=== PATIENT | female | born 1980 | race Caucasian/White ===

== ENCOUNTER 2016-08-27 13:45 | Emergency (ER) | payer SELFPAY ==
[~2016-08-27] VITALS: Ht 165.1 cm; Wt 65.0 kg
[~2016-08-27 13:45] MED LIST: CLIN1CAP6 PO; LACTCHW3 CHEW
[2016-08-27 13:57] VITALS: BP 118/63; PULSE 106; RESP 16; TEMP 98.8; O2SAT 97
[2016-08-27] MEDS ORDERED: SODIUM CHLORIDE 0.9% FLUSH 10 ML FLUSH IVF PRN (14:15)
[2016-08-27] MEDS ORDERED: SODIUM CHLOR 0.9% 1000 ML INJ 1,000 ML IV ONE (14:15)
[2016-08-27] MEDS ORDERED: RISP.25 PO (14:16)
[2016-08-27] MEDS ORDERED: LORazepam 1 MG TAB PO ONE (14:45)
--- NOTE | 2016-08-27 14:46 | PD ---
HPI Chief Complaint: Psychiatric Symptoms Time Seen by Provider: 14:00 Travel History International Travel<30 days: No Contact w/Intl Traveler<30days: No Traveled to known affect area: No History of Present Illness HPI Patient is a 36-year-old female brought into the emergency Department under White act for suicidal ideations. According to the White act report patient has been making physical threats, her anger has been escalating and she states that she wants to hang herself. Patient reported to me that she has had 2 previous suicide attempts and she currently has thoughts of hanging herself. She also reports feeling very irritable, angry, tired. 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 She believes that she is autistic and that's the root of her problems. She endorses tobacco use and marijuana use, she reports a previous history of cocaine. She reports pain in her right foot pad from a splinter. PFSH Past Medical History Arthritis: Yes Anxiety: Yes Depression: Yes Cancer: No Cardiovascular Problems: No Diabetes: No Diminished Hearing: No Endocrine: No Gastrointestinal Disorders: Yes (gallstones) Hepatitis: Yes (HEP C) Immune Disorder: No Implanted Vascular Access Dvce: No Musculoskeletal: Yes Neurologic: No Psychiatric: Yes (PTSD, schizoaffective disorder, bipolar) Reproductive: No Respiratory: No Immunizations Current: Yes Thyroid Disease: No ?: Not : 2 Para: 2 Ovarian Cysts: Yes (RIGHT SIDE) Tubal Ligation: Yes Past Surgical History Abdominal Surgery: Yes (TUMMY TUCK) AICD: No Section: Yes (X2) Gynecologic Surgery: Yes (C SEC 2004 AND 2007) Joint Replacement: No Pacemaker: No Tonsillectomy: Yes Other Surgery: Yes (BREAST AUGMENT.X2/TUMMY TUCK / MRSA RT ARMPIT) Social History Alcohol Use: Yes (RARELY) Tobacco Use: Yes (1 PPD) Substance Use: No (history of polysubstance abuse, none current) Allergies-Medications (Allergen,Severity, Reaction): Coded Allergies: *MDRO Multi-Drug Resistant Organism (Verified Adverse Reaction, Unknown, 04/03/16) MRSA PCR screen POSITIVE 04/02/16 Reported Meds & Prescriptions Reported Meds & Active Scripts Active Reported Risperdal (Risperidone) 0.25 Mg Tab 0.25 Mg PO DAILY Review of Systems Except as stated in HPI: all other systems reviewed are Neg Musculoskeletal: Positive: Pain (right foot pad from a splinter) Physical Exam Narrative GENERAL: Well-developed, well-nourished, alert female. Resting comfortably in no acute distress. SKIN: Focused skin assessment warm/dry. HEAD: Atraumatic. Normocephalic. EYES: Pupils equal and round. No scleral icterus. No injection or drainage. ENT: No nasal bleeding or discharge. Mucous membranes pink and moist. NECK: Trachea midline. No JVD. CARDIOVASCULAR: Regular rate and rhythm. No murmur appreciated. RESPIRATORY: No accessory muscle use. Clear to auscultation. Breath sounds equal bilaterally. GASTROINTESTINAL: Abdomen soft, non-tender, nondistended. Hepatic and splenic margins not palpable. MUSCULOSKELETAL: No obvious deformities. No clubbing. No cyanosis. No edema. NEUROLOGICAL: Drowsy, arousable and alert and oriented 4. No obvious cranial nerve deficits. Motor grossly within normal limits. Normal speech. PSYCHIATRIC: Depressed mood and flat affect; insight and judgment impaired. Data Data Last Documented VS Vital Signs Date Time Temp Pulse Resp B/P Pulse Ox O2 Delivery O2 Flow Rate FiO2 08/27/16 13:57 98.8 106 16 118/63 97 Orders Complete Blood Count With Diff (08/27/16 14:07) Comprehensive Metabolic Panel (08/27/16 14:07) Urinalysis - C+S If Indicated (08/27/16 14:07) Ed Urine Pregnancytest Poc (08/27/16 14:07) Iv Access Insert/Monitor (08/27/16 14:07) Psych Screen (08/27/16 14:07) Sodium Chloride 0.9% Flush (Ns Flush) (08/27/16 14:15) Drug Screen, Random Urine (08/27/16 14:07) Alcohol (Ethanol) (08/27/16 14:07) Salicylates (Aspirin) (08/27/16 14:07) Tylenol (Acetaminophen) (08/27/16 14:07) Sodium Chlor 0.9% 1000 Ml Inj (Ns 1000 M (08/27/16 14:15) Lorazepam (Ativan) (08/27/16 14:45) Diet Regular Basic (08/27/16 Lunch) Vascular Access Team Consult/P PRN (08/27/16 15:31) Vascular Poc Ultrasound (08/27/16 ) Labs Laboratory Tests Test 08/27/16 08/27/16 15:20 15:55 Sodium Level 141 MEQ/L Potassium Level 4.4 MEQ/L Chloride Level 107 MEQ/L Carbon Dioxide Level 28.3 MEQ/L Anion Gap 6 MEQ/L Blood Urea Nitrogen 19 MG/DL Creatinine 0.66 MG/DL Estimat Glomerular Filtration 102 ML/MIN Rate Random Glucose 83 MG/DL Calcium Level 8.8 MG/DL Total Bilirubin 0.6 MG/DL Aspartate Amino Transf 66 U/L (AST/SGOT) Alanine Aminotransferase 85 U/L (ALT/SGPT) Alkaline Phosphatase 54 U/L Total Protein 7.6 GM/DL Albumin 3.8 GM/DL Acetaminophen Level LESS THAN 2.0 MCG/ML Ethyl Alcohol Level LESS THAN 3 MG/DL White Blood Count 5.8 TH/MM3 Red Blood Count 3.91 MIL/MM3 Hemoglobin 12.4 GM/DL Hematocrit 35.0 % Mean Corpuscular Volume 89.5 FL Mean Corpuscular Hemoglobin 31.6 PG Mean Corpuscular Hemoglobin 35.3 % Concent Red Cell Distribution Width 13.8 % Platelet Count 221 TH/MM3 Mean Platelet Volume 8.0 FL Neutrophils (%) (Auto) 58.1 % Lymphocytes (%) (Auto) 29.5 % Monocytes (%) (Auto) 8.4 % Eosinophils (%) (Auto) 3.6 % Basophils (%) (Auto) 0.4 % Neutrophils # (Auto) 3.4 TH/MM3 Lymphocytes # (Auto) 1.7 TH/MM3 Monocytes # (Auto) 0.5 TH/MM3 Eosinophils # (Auto) 0.2 TH/MM3 Basophils # (Auto) 0.0 TH/MM3 CBC Comment DIFF FINAL Differential Comment Salicylates Level 1.8 MG/DL [place] Medical Decision Making Medical Screen Exam Complete: Yes Emergency Medical Condition: Yes Medical Record Reviewed: Yes Interpretation(s) Vital Signs Date Time Temp Pulse Resp B/P Pulse Ox O2 Delivery O2 Flow Rate FiO2 08/27/16 13:57 98.8 106 16 118/63 97 Differential Diagnosis Mood disorder versus substance abuse versus suicidal ideations versus other Narrative Course Patient is a 36-year-old female brought into the emergency Department under White act for suicidal ideations. Patient admits to anger issues and feeling tired. Initially she was cooperative however upon attempting to get blood she became verbally aggressive and noncompliant. She is verbally calmed down and was subsequently given Ativan 1 mg orally. CBC, chemistry, salicylate level, acetaminophen, and alcohol level are unremarkable. Patient is medically clear for psychiatric evaluation at this time. Diagnosis Primary Impression: Medical clearance for psychiatric admission Additional Impression: Splinter in skin Condition: Stable Elaine Chavarria August 27, 2016 14:46
[2016-08-27 16:08] LABS: ALKALINE PHOSPHATASE 54 U/L (45-117); TOTAL BILIRUBIN ADULT 0.6 MG/DL (0.2-1.0)
[2016-08-27 16:17] LABS: ALT (GPT) 85 U/L (10-53); ANION GAP 6 MEQ/L (5-15); AST (GOT) 66 U/L (15-37); BICARBONATE 28.3 MEQ/L (21.0-32.0); BLOOD UREA NITROGEN 19 MG/DL (7-18); CHLORIDE 107 MEQ/L (98-107); GLOMERULAR FILTRATION RATE 102 ML/MIN (>89); POTASSIUM 4.4 MEQ/L (3.5-5.1); SODIUM (NA) 141 MEQ/L (136-145)
[2016-08-27 16:20] LABS: AUTOMATED NEUTROPHIL # 3.4 TH/MM3 (1.8-7.7); BASOPHIL % 0.4 % (0.0-2.0); EOSINOPHIL # 0.2 TH/MM3 (0-0.4); EOSINOPHIL % 3.6 % (0.0-4.0); HEMO FLAGS DIFF FINAL; LYMPH % 29.5 % (9.0-44.0); LYMPHOCYTE # 1.7 TH/MM3 (1.0-4.8); MEAN CELL VOLUME 89.5 FL (80.0-100.0); MEAN CORPUSCULAR HEMOGLOBIN 31.6 PG (27.0-34.0); MEAN CORPUSCULAR HGB CONC 35.3 % (32.0-36.0); MONO % 8.4 % (0.0-8.0); NEUT % 58.1 % (16.0-70.0); PLATELET COUNT 221 TH/MM3 (150-450); RED BLOOD COUNT 3.91 MIL/MM3 (4.00-5.30); RED CELL DISTRIBUTION WIDTH 13.8 % (11.6-17.2); WHITE BLOOD COUNT 5.8 TH/MM3 (4.0-11.0)
[2016-08-27 16:29] LABS: ACETAMINOPHEN LESS THAN 2.0 MCG/ML (10.0-30.0)
[2016-08-27 17:20] LABS: AMPHETAMINE, URINE POS (NEG); BARBITURATES, URINE NEG (NEG); COCAINE, URINE NEG (NEG)
[2016-08-27 17:44] LABS: BLOOD, URINE NEG (NEG); COMMENT (UR) CULT NOT INDICATED; CULTURE IF INDICATED CULT NOT INDICATED; GLUCOSE,URINE NEG (NEG); KETONE, URINE NEG (NEG); NITRITE,URINE NEG (NEG); SQUAMOUS EPITHELIAL CELL URINE 4 /hpf (0-5); URINE COLOR YELLOW (YELLW/STRAW)
[2016-08-27 18:29] VITALS: BP 114/55; PULSE 82; RESP 18; O2SAT 98
[2016-08-27 22:15] VITALS: BP 113/66; PULSE 76; RESP 17; O2SAT 99
[2016-08-28 06:00] VITALS: BP 110/60; PULSE 71; RESP 18; O2SAT 98
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
== END 2016-08-28 10:18 | disposition home or self-care (01) ==
LOC: NEPC 13:45 → NEPJ 08-28 10:18
DX: F15.94 Other stimulant use, unspecified with stimulant-induced mood disorder (principal); F60.3 Borderline personality disorder; Z79.899 Other long term (current) drug therapy
CPT/HCPCS: 80053; 80307; 81001; 84703; 85025; 99283; J7030

== ENCOUNTER 2016-09-12 21:43 | Emergency (ER) | payer OTHER ==
[~2016-09-12] VITALS: Ht 165.1 cm; Wt 65.0 kg
[~2016-09-12 21:43] MED LIST changes: -CLIN1CAP6 PO; -LACTCHW3 CHEW; +RISP.25 PO
[2016-09-12] MEDS ORDERED: HALOPERIDOL LACTATE 5 MG/ML AMP IM ONE (23:00)
[2016-09-12] MEDS ORDERED: LORazepam 2 MG/ML VIAL IV PUSH ONE (23:00)
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
[2016-09-12 23:22] LABS: BACTERIA, URINE MANY /hpf; BLOOD, URINE NEG (NEG); GLUCOSE,URINE NEG (NEG); KETONE, URINE NEG (NEG); MUCUS URINE FEW /lpf (OCC); SQUAMOUS EPITHELIAL CELL URINE 5 /hpf (0-5); URINE COLOR YELLOW (YELLW/STRAW)
[2016-09-12 23:25] LABS: COMMENT (UR) CULTURE INDICATED; CULTURE IF INDICATED CULTURE INDICATED; NITRITE,URINE POS (NEG)
[2016-09-12 23:25] LABS: AUTOMATED NEUTROPHIL # 6.5 TH/MM3 (1.8-7.7); BASOPHIL % 0.4 % (0.0-2.0); EOSINOPHIL # 0.2 TH/MM3 (0-0.4); EOSINOPHIL % 1.7 % (0.0-4.0); HEMO FLAGS DIFF FINAL; LYMPH % 24.9 % (9.0-44.0); LYMPHOCYTE # 2.4 TH/MM3 (1.0-4.8); MEAN CELL VOLUME 89.3 FL (80.0-100.0); MEAN CORPUSCULAR HEMOGLOBIN 30.4 PG (27.0-34.0); MEAN CORPUSCULAR HGB CONC 34.1 % (32.0-36.0); MONO % 6.8 % (0.0-8.0); NEUT % 66.2 % (16.0-70.0); PLATELET COUNT 272 TH/MM3 (150-450); RED BLOOD COUNT 4.82 MIL/MM3 (4.00-5.30); RED CELL DISTRIBUTION WIDTH 13.5 % (11.6-17.2); WHITE BLOOD COUNT 9.8 TH/MM3 (4.0-11.0)
[2016-09-12 23:38] LABS: ANION GAP 7 MEQ/L (5-15)
[2016-09-12 23:39] LABS: AMPHETAMINE, URINE POS (NEG); BARBITURATES, URINE NEG (NEG); COCAINE, URINE NEG (NEG)
[2016-09-12 23:50] LABS: ACETAMINOPHEN LESS THAN 2.0 MCG/ML (10.0-30.0); ALKALINE PHOSPHATASE 62 U/L (45-117); ALT (GPT) 95 U/L (10-53); AST (GOT) 38 U/L (15-37); BICARBONATE 30.1 MEQ/L (21.0-32.0); BLOOD UREA NITROGEN 10 MG/DL (7-18); CHLORIDE 105 MEQ/L (98-107); GLOMERULAR FILTRATION RATE 97 ML/MIN (>89); POTASSIUM 3.6 MEQ/L (3.5-5.1); SODIUM (NA) 142 MEQ/L (136-145); TOTAL BILIRUBIN ADULT 0.4 MG/DL (0.2-1.0)
[2016-09-13] MEDS: CEPHALEXIN MONOHYDRATE 500 MG CAP PO SCH ×5 (00:23→23:30)
[2016-09-13 05:59] VITALS: BP 99/62; PULSE 76; RESP 18; TEMP 98.1; O2SAT 100
[2016-09-13] MEDS ORDERED: OLANZapine IM 10 MG VIAL IM STA (18:11)
[2016-09-13 22:43] VITALS: BP 107/55; PULSE 60; RESP 18; O2SAT 98
[2016-09-14 02:21] VITALS: BP 110/71; PULSE 62; RESP 19; O2SAT 98
[2016-09-14] MEDS: CEPHALEXIN MONOHYDRATE 500 MG CAP PO SCH (06:00)
[2016-09-14 06:17] VITALS: BP 104/65; PULSE 61; RESP 18; TEMP 98.9; O2SAT 96
== END 2016-09-14 08:30 ==
LOC: NEDAMB 21:43 → NEPJ 09-14 08:30
DX: F29 Unspecified psychosis not due to a substance or known physiological condition (principal); N39.0 Urinary tract infection, site not specified; B96.29 Other Escherichia coli [E. coli] as the cause of diseases classified elsewhere; F17.210 Nicotine dependence, cigarettes, uncomplicated; F25.9 Schizoaffective disorder, unspecified; B19.20 Unspecified viral hepatitis C without hepatic coma; F41.8 Other specified anxiety disorders; F43.10 Post-traumatic stress disorder, unspecified; F31.9 Bipolar disorder, unspecified; T14.91 Suicide attempt; X76.XXXA Intentional self-harm by smoke, fire and flames, initial encounter; X83.8XXA Intentional self-harm by other specified means, initial encounter; Y93.9 Activity, unspecified; Y92.009 Unspecified place in unspecified non-institutional (private) residence as the place of occurrence of the external cause
CPT/HCPCS: 80053; 80307; 81001; 84703; 85025; 87077; 87086; 87186; 96372; 96374; 99285; J1630; J2060

== ENCOUNTER 2016-10-26 09:05 | Emergency (ER) | payer SELFPAY ==
[~2016-10-26] VITALS: Ht 162.6 cm; Wt 68.5 kg
[2016-10-26 09:09] VITALS: BP 148/109; PULSE 115; RESP 15; TEMP 97.9; O2SAT 99
--- NOTE | 2016-10-26 09:22 | PD ---
HPI Chief Complaint: Complaint Time Seen by Provider: 09:14 Travel History International Travel<30 days: No Contact w/Intl Traveler<30days: No Traveled to known affect area: No History of Present Illness HPI 36-year-old female here for evaluation of possible vaginal infection. Patient has history of Bactrim vaginosis and states that symptoms feel very similar. For last several days she has been having increasing vaginal discharge with a foul-smelling odor. She is sexually active with one partner and believe she is in a monogamous relationship. She was having some suprapubic abdominal discomfort. History of cholecystectomy. No urinary symptoms. LMP was one month ago. PFSH Past Medical History Arthritis: Yes Anxiety: Yes Depression: Yes Cancer: No Cardiovascular Problems: No Diabetes: No Diminished Hearing: No Endocrine: No Gastrointestinal Disorders: Yes (gallstones) Hepatitis: Yes (HEP C) Immune Disorder: No Implanted Vascular Access Dvce: No Musculoskeletal: Yes Neurologic: No Psychiatric: Yes (PTSD, schizoaffective disorder, bipolar) Reproductive: No Respiratory: No Immunizations Current: Yes Thyroid Disease: No ?: Not : 2 Para: 2 Ovarian Cysts: Yes (RIGHT SIDE) Tubal Ligation: Yes Past Surgical History Abdominal Surgery: Yes (TUMMY TUCK) AICD: No Section: Yes (X2) Gynecologic Surgery: Yes (C SEC 2004 AND 2007) Joint Replacement: No Pacemaker: No Tonsillectomy: Yes Other Surgery: Yes (BREAST AUGMENT.X2/TUMMY TUCK / MRSA RT [facility]MPIT) Social History Alcohol Use: Yes (RARELY) Tobacco Use: Yes (1/2 PPD) Substance Use: Yes (SMOKES SOMETHING FROM [employer] [place]) Allergies-Medications (Allergen,Severity, Reaction): Coded Allergies: *MDRO Multi-Drug Resistant Organism (Verified Adverse Reaction, Unknown, ) MRSA PCR screen POSITIVE 04/02/16 Reported Meds & Prescriptions Reported Meds & Active Scripts Active No Active Prescriptions or Reported Medications Review of Systems Except as stated in HPI: all other systems reviewed are Neg Physical Exam Narrative GENERAL: Well-developed, well-nourished, no apparent distress, poor eye contact. SKIN: Focused skin assessment warm/dry. Tattoos throughout body. HEAD: Atraumatic. Normocephalic. EYES: Pupils equal and round. No scleral icterus. No injection or drainage. ENT: Mucous membranes pink and moist. NECK: Trachea midline. No JVD. CARDIOVASCULAR: Regular rate and rhythm. RESPIRATORY: No accessory muscle use. Clear to auscultation. Breath sounds equal bilaterally. GASTROINTESTINAL: Abdomen soft, nondistended. Mild suprapubic tenderness without peritoneal signs. HOSPITAL PLAN ADMINISTRATOR: Exam performed in the presence of female nurse. Normal external genitalia. Scant/grayish/fishy odor vaginal discharge. Normal cervix. No CMT. No adnexal masses or tenderness. MUSCULOSKELETAL: No obvious deformities. No clubbing. No cyanosis. No edema. NEUROLOGICAL: Awake and alert. No obvious cranial nerve deficits. Motor grossly within normal limits. Normal speech. PSYCHIATRIC: Appropriate mood and affect; insight and judgment normal. Data Data Last Documented VS Vital Signs Date Time Temp Pulse Resp B/P Pulse Ox O2 Delivery O2 Flow Rate FiO2 10/26/16 09:09 97.9 115 15 148/109 99 Orders Urinalysis - C+S If Indicated (10/26/16 09:18) Ed Urine Pregnancytest Poc (10/26/16 09:18) Gc And Chlamydia Pcr (10/26/16 09:18) Wet Prep Profile (10/26/16 09:18) Labs Laboratory Tests Test 10/26/16 09:30 Urine Color YELLOW Urine Turbidity CLEAR Urine pH 7.0 Urine Specific [place] 1.014 Urine Protein NEG mg/dL Urine Glucose (UA) NEG mg/dL Urine Ketones NEG mg/dL Urine Occult Blood NEG Urine Nitrite NEG Urine Bilirubin NEG Urine Leukocyte Esterase NEG Urine RBC 0-3 /hpf Urine WBC 0-2 /hpf Urine Squamous Epithelial > 8 /hpf Cells Urine Bacteria OCC /hpf Microscopic Urinalysis Comment CULT NOT INDICATED Clue Cells (Wet Prep) NONE SEEN Vaginal Trichomonas (Wet Prep) NONE SEEN Vaginal Yeast (Wet Prep) NONE SEEN MDM Medical Decision Making Medical Screen Exam Complete: Yes Emergency Medical Condition: Yes Medical Record Reviewed: Yes Differential Diagnosis BV, Trichomonas, vulvovaginal candidiasis, PID, UTI, Narrative Course Vital signs reviewed. Heart rate improved to 92 without any intervention. UA shows greater than 8 squamous epithelial cells with occasional bacteria, negative nitrites, negative leukocyte esterase, not suggestive of UTI. Wet prep is negative for yeast, negative for clue cells, negative for Trichomonas. Urine is negative. Although wet prep is negative for clue cells, the patient does have grayish discharge with fishy odor. She reports similar symptoms in past when she was diagnosed with BV. She will be treated for BV with Flagyl. No physical exam findings to suggest PID. She is stable for discharge home with outpatient follow-up with an TUBE CUTTER OPERATOR doctor this week. She was informed on when to return to the emergency department. She verbalizes understanding and agreement with plan. Diagnosis Primary Impression: Bacterial vaginosis Referrals: [facility] 3 days Additional Instructions: Follow-up with a fish frog or oyster farmer this week. Return to the emergency department for worsening symptoms or any other concerns. Scripts Metronidazole (Flagyl)500 Mg [id number] Mg PO BID 7 Days Ref 0 Prov:Kel Grey MD 10/26/16 Disposition: 01 DISCHARGE HOME Condition: Stable Kel Grey MD Oct 26, 2016 09:22
[2016-10-26 09:36] LABS: BLOOD, URINE NEG (NEG); GLUCOSE,URINE NEG (NEG); KETONE, URINE NEG (NEG); NITRITE,URINE NEG (NEG)
[2016-10-26 09:43] LABS: URINE COLOR YELLOW (YELLW/STRAW)
[2016-10-26 09:46] LABS: RBC, URINE 0-3 /hpf (0-3); WBC, URINE 0-2 /hpf (0-5)
[2016-10-26 09:47] LABS: BACTERIA, URINE OCC /hpf; COMMENT (UR) CULT NOT INDICATED; CULTURE IF INDICATED CULT NOT INDICATED; SQUAMOUS EPITHELIAL CELL URINE > 8 /hpf (0-5)
[2016-10-26] MEDS ORDERED: METR-1 PO (09:59)
[2016-10-26] MEDS ORDERED: metroNIDAZOLE 500 MG TAB PO ONE (10:00)
[2016-10-26 14:26] LABS: CHLAMYDIA PCR NOT DETECTED (NOT DETECT); NEISSERIA PCR NOT DETECTED (NOT DETECT)
== END 2016-10-26 10:10 | disposition home or self-care (01) ==
LOC: PHED 09:05
DX: N76.0 Acute vaginitis (principal); B19.20 Unspecified viral hepatitis C without hepatic coma
CPT/HCPCS: 81001; 84703; 87210; 87491; 87591; 99284

== ENCOUNTER 2016-11-15 02:54 | Emergency (ER) | payer SELFPAY ==
[~2016-11-15] VITALS: Ht 162.6 cm; Wt 68.2 kg
[~2016-11-15 02:54] MED LIST changes: +METR-1 PO; -RISP.25 PO
[2016-11-15 02:57] VITALS: BP 136/94; PULSE 126; RESP 16; TEMP 97.4; O2SAT 98
--- NOTE | 2016-11-15 03:43 | PD ---
HPI . Abscess Chief Complaint: Skin Problem Time Seen by Provider: 03:21 Travel History International Travel<30 days: No Contact w/Intl Traveler<30days: No Traveled to known affect area: No History of Present Illness HPI This patient presents with chief complaint of a hole in her abdominal wall which is draining pus. She states that it has been present for a week. She states that it is getting progressively worse. She reports that she was seen at an outside facility 4 days ago and prescribed antibiotics. She states that she took the antibiotics for 2 days but stopped because #1, they weren't helping and #2, they were at her mother's house. She denies any fever. She does not have any GI symptoms. No modifying factors. Pain is rated 3/10. PFSH Past Medical History Arthritis: Yes Bipolar Disorder: Yes Anxiety: Yes Depression: Yes Cancer: No Cardiovascular Problems: No Diabetes: No Diminished Hearing: No Endocrine: No Gastrointestinal Disorders: Yes (gallstones) Hepatitis: Yes (HEP C) Immune Disorder: No Implanted Vascular Access Dvce: No Musculoskeletal: Yes Neurologic: No Psychiatric: Yes (PTSD, schizoaffective disorder) Reproductive: No Respiratory: No Immunizations Current: Yes Thyroid Disease: No Tetanus Vaccination: Unknown ?: Not LMP: 10/26/2016 : 2 Para: 2 Ovarian Cysts: Yes (RIGHT SIDE) Tubal Ligation: Yes Past Surgical History Abdominal Surgery: Yes (TUMMY TUCK) AICD: No Section: Yes (X2) Cholecystectomy: Yes Gynecologic Surgery: Yes (C SEC 2004 AND 2007) Joint Replacement: No Pacemaker: No Tonsillectomy: Yes Other Surgery: Yes (BREAST AUGMENT.X2/TUMMY TUCK ) Social History Alcohol Use: Yes (RARELY) Tobacco Use: Yes (1PPD) Substance Use: Yes (MJ "DRUGS BUT NOT SURE WHICH ONES") Allergies-Medications (Allergen,Severity, Reaction): Coded Allergies: *MDRO Multi-Drug Resistant Organism (Verified Adverse Reaction, Unknown, ) MRSA PCR screen POSITIVE 04/02/16 Reported Meds & Prescriptions Reported Meds & Active Scripts Active Flagyl (Metronidazole) 500 Mg Tab 500 Mg PO BID 7 Days Review of Systems Except as stated in HPI: all other systems reviewed are Neg General / Constitutional: No: Fever, Chills Skin: Positive Lesions Physical Exam Narrative GENERAL: Awake and alert and in no acute distress. SKIN: Warm and dry. She has a wound on her right lower abdominal wall which is about the size of a quarter. It is open and has a purulent eschar. The surrounding skin is not red or hot. She does have some localized tenderness. HEAD: Atraumatic. Normocephalic. EYES: Pupils equal and round. NECK: Trachea midline. CARDIOVASCULAR: Regular rate and rhythm. RESPIRATORY: No accessory muscle use. MUSCULOSKELETAL: No obvious deformities. No edema. NEUROLOGICAL: Awake and alert. No obvious cranial nerve deficits. Motor grossly within normal limits. Normal speech. PSYCHIATRIC: Appropriate mood and affect; insight and judgment normal. Data Data Last Documented VS Vital Signs Date Time Temp Pulse Resp B/P Pulse Ox O2 Delivery O2 Flow Rate FiO2 11/15/16 02:57 97.4 126 16 136/94 98 Room Air Orders Basic Metabolic Panel (Bmp) (11/15/16 03:22) Complete Blood Count With Diff (11/15/16 03:22) Wound Culture And Gram Stain (11/15/16 03:22) [facility] Medical Decision Making Medical Screen Exam Complete: Yes Emergency Medical Condition: Yes Medical Record Reviewed: Yes (the patient has been seen before for substance abuse related problems as well as complications of drug abuse including cellulitis, abscesses, ischemic left fifth finger from injecting drugs.) Differential Diagnosis My differential diagnosis includes but is not limited to localized wound infection, cellulitis, abscess Narrative Course This patient presents with a wound on her abdominal wall. It appears to be an abscess which has spontaneously drained. I have ordered a CT to rule out intra- abdominal extension of the abscess or persistent collection of pus. I suspect that this is simply needs good wound care. The patient eloped before she had any labs or CT. Diagnosis Primary Impression: Abdominal wall abscess Disposition: 07 AGAINST MEDICAL ADVICE Yeimi Cuellar MD Nov 15, 2016 03:43
== END 2016-11-15 05:30 | disposition left against medical advice (07) ==
LOC: NEPC 02:54
DX: L02.211 Cutaneous abscess of abdominal wall (principal); A49.01 Methicillin susceptible Staphylococcus aureus infection, unspecified site; M13.88 Other specified arthritis, other site; F31.9 Bipolar disorder, unspecified; B19.20 Unspecified viral hepatitis C without hepatic coma; F43.10 Post-traumatic stress disorder, unspecified; F25.9 Schizoaffective disorder, unspecified; F41.9 Anxiety disorder, unspecified; F17.200 Nicotine dependence, unspecified, uncomplicated
CPT/HCPCS: 86403; 87070; 87186; 99283

== ENCOUNTER 2016-11-25 16:36 | Inpatient (IN) | payer OTHER ==
[~2016-11-25] VITALS: Ht 162.6 cm; Wt 64.5 kg
[2016-11-25 16:45] VITALS: BP 131/89; PULSE 109; RESP 20; TEMP 98.2; O2SAT 99
[2016-11-25 17:17] LABS: MEAN CORPUSCULAR HGB CONC 36.5 % (32.0-36.0)
[2016-11-25] MEDS ORDERED: LORazepam 2 MG/ML VIAL IM ONE (18:00)
[2016-11-25 18:28] LABS: AMPHETAMINE, URINE POS (NEG); BARBITURATES, URINE NEG (NEG); COCAINE, URINE NEG (NEG)
[2016-11-25 18:33] LABS: BASOPHIL % 0.3 % (0.0-2.0); EOSINOPHIL # 0.1 TH/MM3 (0-0.4); EOSINOPHIL % 0.4 % (0.0-4.0); HEMATOCRIT 38.6 % (35.0-46.0); HEMO FLAGS AUTO DIFF; LYMPH % 17.5 % (9.0-44.0); LYMPHOCYTE # 2.1 TH/MM3 (1.0-4.8); MEAN CELL VOLUME 88.2 FL (80.0-100.0); MEAN CORPUSCULAR HEMOGLOBIN 32.2 PG (27.0-34.0); MONO % 7.3 % (0.0-8.0); NEUT % 74.5 % (16.0-70.0); PLATELET COUNT 278 TH/MM3 (150-450); RED BLOOD COUNT 4.37 MIL/MM3 (4.00-5.30); RED CELL DISTRIBUTION WIDTH 12.4 % (11.6-17.2)
[2016-11-25 18:46] LABS: ALKALINE PHOSPHATASE 62 U/L (45-117); ALT (GPT) 80 U/L (10-53); ANION GAP 9 MEQ/L (5-15); AST (GOT) 49 U/L (15-37); BICARBONATE 23.9 MEQ/L (21.0-32.0); BLOOD UREA NITROGEN 15 MG/DL (7-18); CHLORIDE 107 MEQ/L (98-107); GLOMERULAR FILTRATION RATE 85 ML/MIN (>89); SODIUM (NA) 140 MEQ/L (136-145); TOTAL BILIRUBIN ADULT 0.6 MG/DL (0.2-1.0)
[2016-11-25 18:49] LABS: ACETAMINOPHEN LESS THAN 2.0 MCG/ML (10.0-30.0)
[2016-11-25 18:50] LABS: POTASSIUM 2.8 MEQ/L (3.5-5.1)
[2016-11-25 19:09] LABS: SCAN/DIFF AUTO DIFF CONFIRMED
[2016-11-25 19:11] VITALS: BP 138/93; PULSE 90; RESP 16; O2SAT 100
[2016-11-25] MEDS ORDERED: POTASSIUM CHLORIDE 10 MEQ CONTROLLED RELEASE TAB PO ONE (19:15)
--- NOTE | 2016-11-25 19:23 | PD ---
HPI Chief Complaint: Psychiatric Symptoms Time Seen by Provider: 17:11 Travel History International Travel<30 days: No Contact w/Intl Traveler<30days: No Traveled to known affect area: No History of Present Illness HPI Patient is a 36-year-old female brought in by PD under [place] act. [place], [facility] and he been water, caring an Ax. Patient refuses to provide any information. She refuses to speak with any medical personnel. PFSH Past Medical History Arthritis: Yes Bipolar Disorder: Yes Anxiety: Yes Depression: Yes Cancer: No Cardiovascular Problems: No Diabetes: No Diminished Hearing: No Endocrine: No Gastrointestinal Disorders: Yes (gallstones) Hepatitis: Yes (HEP C) Immune Disorder: No Implanted Vascular Access Dvce: No Medical other: Yes (RECALLED HX, PT. REFUSING TO COMMUNICATE) Musculoskeletal: Yes Neurologic: No Psychiatric: Yes (PTSD, schizoaffective disorder) Reproductive: No Respiratory: No Immunizations Current: Yes Thyroid Disease: No ?: Unknown : 2 Para: 2 Ovarian Cysts: Yes (RIGHT SIDE) Tubal Ligation: Yes Past Surgical History Abdominal Surgery: Yes (TUMMY TUCK) AICD: No Section: Yes (X2) Cholecystectomy: Yes Gynecologic Surgery: Yes (C SEC 2004 AND 2007) Joint Replacement: No Pacemaker: No Tonsillectomy: Yes Other Surgery: Yes (BREAST AUGMENT.X2/TUMMY TUCK ) Social History Alcohol Use: Yes (RARELY FROM HX) Tobacco Use: Yes (1PPD-FROM HX) Substance Use: Yes (MJ "DRUGS BUT NOT SURE WHICH ONES") Allergies-Medications (Allergen,Severity, Reaction): Coded Allergies: *MDRO Multi-Drug Resistant Organism (Verified Adverse Reaction, Unknown, ) MRSA PCR screen POSITIVE 04/02/16 MRSA (abdomen) 11/15/16 Reported Meds & Prescriptions Reported Meds & Active Scripts Active Review of Systems ROS Limitations: Uncooperative Physical Exam Exam Limitations: Uncooperative Narrative GENERAL: Awake and alert, in no acute distress. SKIN: Focused skin assessment warm/dry. Healing bruises to the upper extremities. No signs of infection. HEAD: Atraumatic. Normocephalic. EYES: Pupils equal and round. No scleral icterus. ENT: Mucous membranes pink and moist. NECK: Trachea midline. No JVD. CARDIOVASCULAR: Regular rate and rhythm. No murmur appreciated. RESPIRATORY: No accessory muscle use. Clear to auscultation. Breath sounds equal bilaterally. GASTROINTESTINAL: Abdomen soft, non-tender, nondistended. MUSCULOSKELETAL: No obvious deformities. No clubbing. No cyanosis. No edema. NEUROLOGICAL: Awake and alert. No obvious cranial nerve deficits. Motor grossly within normal limits. Normal speech. PSYCHIATRIC: Uncooperative and agitated. Data Data Last Documented VS Vital Signs Date Time Temp Pulse Resp B/P Pulse Ox O2 Delivery O2 Flow Rate FiO2 11/25/16 19:11 90 16 138/93 100 Room Air 11/25/16 16:45 98.2 Orders Complete Blood Count With Diff (11/25/16 17:16) Comprehensive Metabolic Panel (11/25/16 17:16) Psych Screen (11/25/16 17:16) Drug Screen, Random Urine (11/25/16 17:16) Alcohol (Ethanol) (11/25/16 17:16) Salicylates (Aspirin) (11/25/16 17:16) Tylenol (Acetaminophen) (11/25/16 17:16) Lorazepam Inj (Ativan Inj) (11/25/16 18:00) Restraints Violent (11/25/16 18:40) Potassium Chlor 10 Meq Premix (Kcl 10 Me (11/25/16 19:15) Potassium Chloride (Kcl) (11/25/16 19:15) Labs Laboratory Tests Test 11/25/16 11/25/16 17:58 18:10 White Blood Count 12.0 TH/MM3 Red Blood Count 4.37 MIL/MM3 Hemoglobin 14.1 GM/DL Hematocrit 38.6 % Mean Corpuscular Volume 88.2 FL Mean Corpuscular Hemoglobin 32.2 PG Mean Corpuscular Hemoglobin 36.5 % Concent Red Cell Distribution Width 12.4 % Platelet Count 278 TH/MM3 Mean Platelet Volume 8.5 FL Neutrophils (%) (Auto) 74.5 % Lymphocytes (%) (Auto) 17.5 % Monocytes (%) (Auto) 7.3 % Eosinophils (%) (Auto) 0.4 % Basophils (%) (Auto) 0.3 % Neutrophils # (Auto) 9.0 TH/MM3 Lymphocytes # (Auto) 2.1 TH/MM3 Monocytes # (Auto) 0.9 TH/MM3 Eosinophils # (Auto) 0.1 TH/MM3 Basophils # (Auto) 0.0 TH/MM3 CBC Comment AUTO DIFF Differential Comment AUTO DIFF CONFIRMED Sodium Level 140 MEQ/L Potassium Level 2.8 MEQ/L Chloride Level 107 MEQ/L Carbon Dioxide Level 23.9 MEQ/L Anion Gap 9 MEQ/L Blood Urea Nitrogen 15 MG/DL Creatinine 0.77 MG/DL Estimat Glomerular Filtration 85 ML/MIN Rate Random Glucose 91 MG/DL Calcium Level 9.1 MG/DL Total Bilirubin 0.6 MG/DL Aspartate Amino Transf 49 U/L (AST/SGOT) Alanine Aminotransferase 80 U/L (ALT/SGPT) Alkaline Phosphatase 62 U/L Total Protein 8.1 GM/DL Albumin 4.2 GM/DL Salicylates Level 2.2 MG/DL Acetaminophen Level LESS THAN 2.0 MCG/ML Ethyl Alcohol Level LESS THAN 3 MG/DL Urine Opiates Screen NEG Urine Barbiturates Screen NEG Urine Amphetamines Screen POS Urine Benzodiazepines Screen NEG Urine Cocaine Screen NEG Urine Cannabinoids Screen NEG MDM Medical Decision Making Medical Screen Exam Complete: Yes Emergency Medical Condition: Yes Medical Record Reviewed: Yes Differential Diagnosis Psychosis versus intoxication versus suicide attempt Narrative Course Patient is a 36-year-old female brought in under [place] act by police [place] the [place] and water with an ax. Exam shows some bruising to the skin, which appears old, no signs of infection. Patient is very uncooperative, she tried to leave and had to be chased down by police. She was placed in restraints and given 2 mg of Ativan. Labs showed a potassium of 2.8, this was replaced. Urine drug screen is positive for amphetamines. She will be medically cleared for psychiatric evaluation. Disposition per psychiatry. 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
[2016-11-25] MEDS: POTASSIUM CHLOR 10 MEQ PREMIX 100 ML IV SCH ×2 (20:30→21:29)
[2016-11-25 23:57] VITALS: BP 117/68; PULSE 87; RESP 16; O2SAT 100
[2016-11-26 06:08] VITALS: BP 131/55; PULSE 75; RESP 18; TEMP 98.1; O2SAT 98
[2016-11-26 10:07] VITALS: BP 105/71; PULSE 94; RESP 18; O2SAT 98
[2016-11-26 14:20] VITALS: BP 122/78; PULSE 87; RESP 18; O2SAT 99
[2016-11-26 18:04] VITALS: BP 125/64; PULSE 84; RESP 18; O2SAT 100
[2016-11-26 22:00] VITALS: BP 110/52; PULSE 90; RESP 18; O2SAT 97
[2016-11-27 02:44] VITALS: BP 129/76; PULSE 80; RESP 17; O2SAT 97
[2016-11-27 06:27] VITALS: BP 135/92; PULSE 81; RESP 18; O2SAT 97
[2016-11-27 10:37] VITALS: BP 132/82; PULSE 101; RESP 18; O2SAT 98
[2016-11-27] MEDS ORDERED: MAGNESIUM HYDROXIDE SUSP 30 ML CUP PO PRN (13:15)
[2016-11-27] MEDS ORDERED: LORazepam 1 MG TAB PO PRN (13:15)
[2016-11-27] MEDS ORDERED: LORazepam 0.5 MG TAB PO PRN (13:15)
[2016-11-27] MEDS ORDERED: traZODone HCL 50 MG TAB PO PRN (13:15)
[2016-11-27] MEDS ORDERED: LORazepam 2 MG/ML VIAL IM PRN ×2 (13:15)
[2016-11-27] MEDS ORDERED: ACETAMINOPHEN 325 MG TAB PO PRN (13:15)
[2016-11-27] MEDS ORDERED: ALUMINUM/MAGNESIUM/SIMETH 30 ML CUP PO PRN (13:15)
--- NOTE | 2016-11-27 13:19 | HHI.HP ---
Provisional Diagnosis Admission Date [place] I. Schizophrenia, chronic paranoid type Certification of Person's Competence To Provide Express and Informed Consent I have personally examined Leyla Casper , a person being served at [facility] on, Nov 27, 2016 13:10. Express and informed consent means consent voluntarily given in writing, by a competent person, after sufficient explanation and disclosure of the subject matter involved to enable the person to make a knowing and willful decision without any element of force, fraud, deceit, duress, or other form of constraint or coercion. This person is 18 years of age or older, is not now known to be incompetent to consent to treatment with a guardian advocate, and does not have a health care surrogate or proxy currently making medical treatment decisions. I have found this person to be one of the following: [x] Competent to provide express and informed consent, as defined above, for voluntary admission to this facility and is competent to provide express and informed consent for treatment. He/she has the consistent capacity to make well reasoned, willful, and knowing decisions concerning his or her medical or mental health treatment. The person fully and consistently understands the purpose of the admission for examination/placement and is fully capable of personally exercising all rights [place] Incompetent to provide express and informed consent to voluntary admission, and this is incompetent to provide express and informed consent to treatment. The person must be transferred to involuntary status and a petition for a guardian advocate filed with the Circuit Court. [] Refusing to provide express and informed consent to voluntary admission but is competent to provide express and informed consent for treatment. The person must be discharged or transferred to involuntary status. Form shall be completed within 24 hours of a person's arrival at the receiving facility and filed in the clinical record of each person: 1. Admitted on a voluntary basis 2. Permitted to provide express and informed consent to his/her own treatment 3. Allowed to transfer from involuntary to voluntary status 4. Prior to permitting a person to consent to his or her own treatment after having been previously found incompetent to consent to treatment. History of Present Illness Capacity: Has Capacity HPI 36-year-old female brought in under involuntary commitment for walking in a river holding an ax. Patient was quoted verbatim as stating "I was just doing everyone a favor and leaving since nobody cares. My life bothers people." Furthermore, the patient had been trespassing and refused to come to sure when requested to do so multiple times. She would not give specific information as to what she was doing but reported she needed to protect herself from other people. She also stated she needed to prove a point to her boyfriend's father. The boyfriend was contacted and stated he was unaware of her using drugs but that she used to have a problems with opiates. He also reported she had been "wigging out and thinking people were zombies and that someone was out to harm her." She has been diagnosed with schizophrenia when seen at [facility]. She was reportedly taking prescribed lithium but has been off this medicine because it got wet. Finally, she was admitted to [facility] approximately 2 months ago At this time the patient remains a poor historian. She demonstrates increased response latency, as if she is responding to internal stimuli or experiencing thought blocking. She does state she feels people are out to harm her "sometimes" but is unable to explain this. She is also unable to explain why she was walking in the water, holding an ax. Review of Systems Except as stated in HPI: all other systems reviewed are Neg Past Psych History Psychological trauma history Diagnosed as schizophrenic according to records reviewed by this physician. Violence risk - others (6 mos) Minimal Violence risk - self (6 mos) High Substance Abuse History Drugs/Alcohol past 12 months Denied. Patient's drug screen was positive for amphetamines. Past Family Social History Coded Allergies: *MDRO Multi-Drug Resistant Organism (Verified Adverse Reaction, Unknown, ) MRSA PCR screen POSITIVE 04/02/16 MRSA (abdomen) 11/15/16 Discontinued Scripts Metronidazole (Flagyl)500 Mg [id number] Mg PO BID 7 Days Ref 0 Prov:Kel Grey MD 10/26/16 [place] Family History Unknown. Patient is poor historian. Social History Patient lives with her boyfriend Kavin. His telephone number is [phone]. She is unemployed. He does not feel she has been taking drugs recently. He does admit to her being prescribed lithium. Patient's Strengths (min. 2) Verbal and resilient. Physical Exam GENERAL: SKIN: Warm and dry. HEAD: Normocephalic. EYES: No scleral icterus. No injection or drainage. NECK: Supple, trachea midline. No JVD or lymphadenopathy. CARDIOVASCULAR: Regular rate and rhythm without murmurs, gallops, or rubs. RESPIRATORY: Breath sounds equal bilaterally. No accessory muscle use. GASTROINTESTINAL: Abdomen soft, non-tender, nondistended. MUSCULOSKELETAL: No cyanosis, or edema. BACK: Nontender without obvious deformity. No CVA tenderness. Vital Signs Vital Signs Date Time Temp Pulse Resp B/P Pulse Ox O2 Delivery O2 Flow Rate FiO2 11/27/16 10:37 101 18 132/82 98 Room Air 11/26/16 06:08 98.1 Mental Status Examination Speech: Unremarkable Orientation: x3 Memory: Unremarkable Thought Process: Thought Blocking Thought Content: Paranoid Hallucination Type: None Attention and Concentration: Good Suicidal Ideation: Yes Previous Suicide Attempts: Yes Homicidal Ideation: No Previous Homicide Attempts: No Insight: Fair Judgment: WNL Affect: Good Mood: Appropriate Motor Activity: Normal gait Assessment & Plan Problem List: (1) Chronic paranoid schizophrenia ICD Code: F20.0 Assessment & Plan Estimated LOS: days patient is apparently having a psychotic episode. She is a 36-year-old female with a reported history of a diagnosis of schizophrenia, treated at [facility]. She was civilly committed last evening for walking in a river, holding an ax and voicing suicidal ideation. She is unable to explain this except that her boyfriend states she feels there are others out to harm her and there are zombies in the world. This physician feels the patient is at high risk of harming herself and she is therefore being admitted for evaluation and treatment. She will receive a CBC and comprehensive metabolic profile in case there is an infectious process or metabolic process causing her psychosis. Likewise she will be tested for thyroid stimulating hormone in case there is a thyroid problem aggravating her psychosis. We will also check vitamin B-12 and vitamin D levels to determine if there is a vitamin deficiency causing this psychotic break. We will obtain an EKG to determine if she has any cardiac conduction problems which might be adversely affected by psychotropic medicines. This physician spoke to the patient's nurse regarding her recent behavior since being in the emergency room and the nurse reports the patient is noncommunicative. This physician will also ask the marriage and family social worker to become involved to gather more information and assist with disposition planning. The patient is anticipated to be placed back on psychotropic medications for stabilization. Crsitobal Perry MD Nov 27, 2016 13:19
[2016-11-27 15:00] VITALS: BP 132/82; PULSE 101; RESP 18; O2SAT 98
[2016-11-27 16:00] VITALS: BP 114/78; PULSE 89; RESP 18; TEMP 98.4; O2SAT 99
[2016-11-27 18:12] VITALS: BP 114/78; PULSE 98; RESP 18; TEMP 98.4; O2SAT 89
[2016-11-28 06:14] VITALS: BP 130/98; PULSE 82; RESP 18; TEMP 98.1; O2SAT 98
[2016-11-28 08:33] LABS: AUTOMATED NEUTROPHIL # 6.4 TH/MM3 (1.8-7.7); BASOPHIL % 0.3 % (0.0-2.0); EOSINOPHIL # 0.1 TH/MM3 (0-0.4); EOSINOPHIL % 1.6 % (0.0-4.0); HEMATOCRIT 39.3 % (35.0-46.0); HEMO FLAGS DIFF FINAL; LYMPH % 19.5 % (9.0-44.0); LYMPHOCYTE # 1.7 TH/MM3 (1.0-4.8); MEAN CELL VOLUME 87.9 FL (80.0-100.0); MEAN CORPUSCULAR HEMOGLOBIN 31.5 PG (27.0-34.0); MEAN CORPUSCULAR HGB CONC 35.9 % (32.0-36.0); NEUT % 71.6 % (16.0-70.0); PLATELET COUNT 271 TH/MM3 (150-450); RED BLOOD COUNT 4.48 MIL/MM3 (4.00-5.30); RED CELL DISTRIBUTION WIDTH 12.8 % (11.6-17.2)
[2016-11-28 09:07] LABS: ALT (GPT) 87 U/L (10-53); ANION GAP 4 MEQ/L (5-15); AST (GOT) 50 U/L (15-37); BICARBONATE 28.5 MEQ/L (21.0-32.0); BLOOD UREA NITROGEN 11 MG/DL (7-18); CHLORIDE 104 MEQ/L (98-107); GLOMERULAR FILTRATION RATE 110 ML/MIN (>89); POTASSIUM 3.8 MEQ/L (3.5-5.1); SODIUM (NA) 136 MEQ/L (136-145)
[2016-11-28 09:29] LABS: ALKALINE PHOSPHATASE 55 U/L (45-117); HDL CHOLESTEROL 35.1 MG/DL (40.0-60.0); LDL CHOLESTEROL 71 MG/DL (0-99); TOTAL BILIRUBIN ADULT 0.7 MG/DL (0.2-1.0)
[2016-11-28] MEDS ORDERED: LORazepam 2 MG/ML VIAL IM PRN (12:45)
[2016-11-28] MEDS ORDERED: LORazepam 1 MG TAB PO PRN (12:45)
[2016-11-28] MEDS ORDERED: traZODone HCL 50 MG TAB PO PRN (12:45)
[2016-11-28] MEDS ORDERED: hydrOXYzine HCL 50 MG TAB PO PRN (14:30)
[2016-11-28] MEDS ORDERED: MAGNESIUM HYDROXIDE SUSP 30 ML CUP PO PRN (14:30)
[2016-11-28] MEDS ORDERED: diphenhydrAMINE HCL 50 MG CAP PO PRN (14:30)
[2016-11-28] MEDS ORDERED: ALUMINUM/MAGNESIUM/SIMETH 30 ML CUP PO PRN (14:30)
[2016-11-28] MEDS ORDERED: ACETAMINOPHEN 325 MG TAB PO PRN (14:30)
--- NOTE | 2016-11-28 14:45 | HHI.PYPN ---
Subjective Remarks Patient seen in room with nurse Joyce, chart reviewed, psychiatry admission template completed, patient is seen in her room irritable manipulative, perseverative attempting to reflect questions back on me. Though she does reluctantly acknowledge multiple drug abuse including amphetamines methamphetamine marijuana cocaine LSD and ecstasy opiates and benzodiazepines patient continues very vague and ambiguous with essentially requested that I asked her. That appear she has been hospitalized for mental health reasons the past and her diagnosis of schizophrenia, and bipolar disorder. It appears she' s been noncompliant with all of her medications. She does state she lives in a house with multiple other adults including her male boyfriend. She states she has 2 children that are living with their fathers. Question her status with them. She also states she is spent time in alf within the past few months she is unwilling to go into the type of charges that occurred with them. She is unwilling to discuss which is ever been in a detox or rehabilitation facility. However and consideration of the severity of her behaviors I feel is appropriate that she be admitted monitored and observed for a period of time to assess her state ability. I do feel she meets criteria for further inpatient stander the White act. Thus I will do first opinion request second opinion. Will refrain from any benzodiazepines or opiates at the present time. If possible try to get some type of collateral information from boyfriend of his any other family members. Review of Systems Constitutional: DENIES: Diaphoretic episodes, Fatigue, Fever, Weight gain, Weight loss, Chills, Dizziness, Change in appetite, Night Sweats Endocrine: DENIES: Abnorml menstrual pattern, Heat/cold intolerance, Polydipsia , Polyuria, Polyphagia Eyes: DENIES: Blurred vision, Diplopia, Eye inflammation, Eye pain, Vision loss , Photosensitivity, Double Vision Ears, nose, mouth, throat: DENIES: Tinnitus, Hearing loss, Vertigo, Nasal discharge, Oral lesions, Throat pain, Hoarseness, Ear Pain, Running Nose, Epistaxis, Sinus Pain, Toothache, Odynophagia Respiratory: DENIES: Apneas, Cough, Snoring, Wheezing, Hemoptysis, Sputum production, Shortness of breath Cardiovascular: DENIES: Chest pain, Palpitations, Syncope, Dyspnea on Exertion , PND, Lower Extremity Edema, Orthopnea, Claudication Gastrointestinal: DENIES: Abdominal pain, Black stools, Bloody stools, Constipation, Diarrhea, Nausea, Vomiting, Difficulty Swallowing, Anorexia Genitourinary: DENIES: Abnormal vaginal bleeding, Dysmenorrhea, Dyspareunia, Sexual dysfunction, Urinary frequency, Urinary incontinence, Urgency, Hematuria , Dysuria, Nocturia, Vaginal discharge Musculoskeletal: DENIES: Joint pain, Muscle aches, Stiffness, Joint Swelling, Back pain, Neck pain Integumentary: DENIES: Abnormal pigmentation, Pruritus, Rash, Nail changes, Breast masses, Breast skin changes, Nipple discharge Hematologic/lymphatic: DENIES: Bruising, Lymphadenopathy Immunologic/allergic: DENIES: Eczema, Urticaria Psychiatric: COMPLAINS OF: Suicidal Ideation (made vague statements to police) , Delusions (vague statements to police) Objective Alert: Yes [place]: Person, Place Mood: Agitated (mildly), Other (restricted) Affect: Other (slight decreased range and intensity) Memory Intact: Comment (Deanne fair) Hallucinations: Other (patient denies) Delusions: No Delusion Type: Paranoid (vaguely paranoid) Suicidal: Ideation (patient markedly ambiguous and manipulative) Homicidal: Ideation (patient markedly ambiguous and manipulative) Insight/Judgment Very poor Labs Test 11/28/16 07:25 White Blood Count 9.0 TH/MM3 Red Blood Count 4.48 MIL/MM3 Hemoglobin 14.1 GM/DL Hematocrit 39.3 % Mean Corpuscular Volume 87.9 FL Mean Corpuscular Hemoglobin 31.5 PG Mean Corpuscular Hemoglobin 35.9 % Concent Red Cell Distribution Width 12.8 % Platelet Count 271 TH/MM3 Mean Platelet Volume 8.2 FL Neutrophils (%) (Auto) 71.6 % Lymphocytes (%) (Auto) 19.5 % Monocytes (%) (Auto) 7.0 % Eosinophils (%) (Auto) 1.6 % Basophils (%) (Auto) 0.3 % Neutrophils # (Auto) 6.4 TH/MM3 Lymphocytes # (Auto) 1.7 TH/MM3 Monocytes # (Auto) 0.6 TH/MM3 Eosinophils # (Auto) 0.1 TH/MM3 Basophils # (Auto) 0.0 TH/MM3 CBC Comment DIFF FINAL Differential Comment Sodium Level 136 MEQ/L Potassium Level 3.8 MEQ/L Chloride Level 104 MEQ/L Carbon Dioxide Level 28.5 MEQ/L Anion Gap 4 MEQ/L Blood Urea Nitrogen 11 MG/DL Creatinine 0.62 MG/DL Estimat Glomerular Filtration 110 ML/MIN Rate Random Glucose 85 MG/DL Calcium Level 8.7 MG/DL Total Bilirubin 0.7 MG/DL Aspartate Amino Transf 50 U/L (AST/SGOT) Alanine Aminotransferase 87 U/L (ALT/SGPT) Alkaline Phosphatase 55 U/L Total Protein 7.2 GM/DL Albumin 3.7 GM/DL Triglycerides Level 112 MG/DL Cholesterol Level 128 MG/DL LDL Cholesterol 71 MG/DL HDL Cholesterol 35.1 MG/DL Cholesterol/HDL Ratio 3.64 RATIO Vitamin B12 Level 1052 PG/ML 25-Hydroxy Vitamin D Total 27.7 ng/ML Thyroid Stimulating Hormone 1.210 uIU/ML 3rd Gen Vitals/IOs Vital Signs Date Time Temp Pulse Resp B/P Pulse Ox O2 Delivery O2 Flow Rate FiO2 11/28/16 06:14 98.1 82 18 130/98 98 11/27/16 15:00 Room Air Assessment & Plan Problem List: (1) Chronic paranoid schizophrenia ICD Code: F20.0 (2) Amphetamine abuse ICD Code: F15.10 (3) Borderline personality disorder ICD Code: F60.3 (4) history of polysubstance abuse Assessment & Plan Estimated LOS: 3-5 days patient continues to meet criteria for further observation assessment under the White act will do first opinion requests second opinion. Will refrain from any psychotropic medications at this time. 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 Justification for Cont. Inpt. At this time patient will decompensate if placed in a lower level of care Discharge Planning To be determined Request HC Surrog/Guard Advoc?: No Sebastian Jiménez MD Nov 28, 2016 14:45
[2016-11-28 16:04] LABS: HEMOGLOBIN A1b 0.8 %; HEMOGLOBIN Ao 86.6 %; HEMOGLOBIN LA1C 1.9 %; HEMOGLOBIN P3 3.5 %
[2016-11-28 22:51] VITALS: BP 136/84; PULSE 92; RESP 16; TEMP 97.8; O2SAT 99
[2016-11-29 06:00] VITALS: BP 115/67; PULSE 75; RESP 17; TEMP 97.6; O2SAT 99
--- NOTE | 2016-11-29 08:41 | PD.PSY.CON ---
Provisional Diagnosis Admission Date Nov 27, 2016 at 13:08 [place] I. 1. Other psychotic disorder 2. Amphetamine abuse [place] II. Deferred History of Present Illness Service Psychiatry Consult Requested By Dr. Jiménez Reason for Consult Second opinion for involuntary psychiatric hospitalization Primary Care Physician No Primary Care Physician HPI From Dr. Perry's H&P: 36-year-old female brought in under involuntary commitment for walking in a river holding an ax. Patient was quoted verbatim as stating "I was just doing everyone a favor and leaving since nobody cares. My life bothers people." Furthermore, the patient had been trespassing and refused to come to sure when requested to do so multiple times. She would not give specific information as to what she was doing but reported she needed to protect herself from other people. She also stated she needed to prove a point to her boyfriend's father. The boyfriend was contacted and stated he was unaware of her using drugs but that she used to have a problems with opiates. He also reported she had been "wigging out and thinking people were zombies and that someone was out to harm her." She has been diagnosed with schizophrenia when seen at [facility]. She was reportedly taking prescribed lithium but has been off this medicine because it got wet. Finally, she was admitted to [facility] approximately 2 months ago At this time the patient remains a poor historian. She demonstrates increased response latency, as if she is responding to internal stimuli or experiencing thought blocking. She does state she feels people are out to harm her "sometimes" but is unable to explain this. She is also unable to explain why she was walking in the water, holding an ax. On my examination today: Patient seen and examined with nurse. Chart reviewed. Case discussed with nursing staff. Patient presents as sarcastic, irritable, and fairly uncooperative. She provides no explanation for the circumstances of her presentation here. She is noncommittal regarding SI/HI/AVH. She is basically refusing to participate in interview. Past psychiatric history: "Not really." Patient does admit to a history of psychiatric admissions in the past but denies a history of suicide attempts. Family history: Patient reports that she is not sure of her family history. Chemical dependency history: Patient denies any abuse of drugs or alcohol but provides no explanation for the amphetamines found in her urine. Social history: Patient tells me that she lives in a house with people, declines to provide further details. At this point she tells me that I am asking her the same questions and refuses to speak any further. Review of Systems ROS Limitations: Uncooperative, Poor Historian Other Limited ROS, patient uncooperative Past Family Social History Coded Allergies: *MDRO Multi-Drug Resistant Organism (Verified Adverse Reaction, Unknown, ) MRSA PCR screen POSITIVE 04/02/16 MRSA (abdomen) 11/15/16 Past Medical History See EMR Discontinued Scripts Metronidazole (Flagyl)500 Mg Ztx042 Mg PO BID 7 Days Ref 0 Prov:Kel Grey MD 10/26/16 Current Medications Medications (Trade) Dose Ordered Sig/Lisa Route Start Time Stop Time Status Last Admin (Milk Of Magnesia Liq) 30 ml DAILY PRN PO 11/27/16 13:15 (Mag-Al Plus Susp Liq) 30 ml Q6H PRN PO 11/27/16 13:15 (Desyrel) 50 mg HS PRN PO 11/28/16 12:45 (Benadryl) 50 mg HS PRN PO 11/28/16 14:30 (Tylenol) 650 mg Q4H PRN PO 11/28/16 14:30 (Milk Of Magnesia Liq) 30 ml DAILY PRN PO 11/28/16 14:30 (Mag-Al Plus Susp Liq) 30 ml Q6H PRN PO 11/28/16 14:30 (Atarax) 50 mg Q6H PRN PO 11/28/16 14:30 Patient's Strengths (min. 2) In monitored setting. Verbally fluent. Physical Exam Physical exam completed by ED provider. On my examination today, patient appears to be in no acute physical distress. No motor abnormalities noted. Labs and vitals reviewed: Vital Signs Vital Signs Date Time Temp Pulse Resp B/P Pulse Ox O2 Delivery O2 Flow Rate FiO2 11/29/16 06:00 97.6 75 17 115/67 99 11/27/16 15:00 Room Air Lab Results Laboratory Tests Test 11/25/16 11/25/16 11/28/16 17:58 18:10 07:25 Salicylates Level 2.2 MG/DL Acetaminophen Level LESS THAN 2.0 MCG/ML Ethyl Alcohol Level LESS THAN 3 MG/DL Urine Opiates Screen NEG Urine Barbiturates Screen NEG Urine Amphetamines Screen POS Urine Benzodiazepines Screen NEG Urine Cocaine Screen NEG Urine Cannabinoids Screen NEG White Blood Count 9.0 TH/MM3 Red Blood Count 4.48 MIL/MM3 Hemoglobin 14.1 GM/DL Hematocrit 39.3 % Mean Corpuscular Volume 87.9 FL Mean Corpuscular Hemoglobin 31.5 PG Mean Corpuscular Hemoglobin 35.9 % Concent Red Cell Distribution Width 12.8 % Platelet Count 271 TH/MM3 Mean Platelet Volume 8.2 FL Neutrophils (%) (Auto) 71.6 % Lymphocytes (%) (Auto) 19.5 % Monocytes (%) (Auto) 7.0 % Eosinophils (%) (Auto) 1.6 % Basophils (%) (Auto) 0.3 % Neutrophils # (Auto) 6.4 TH/MM3 Lymphocytes # (Auto) 1.7 TH/MM3 Monocytes # (Auto) 0.6 TH/MM3 Eosinophils # (Auto) 0.1 TH/MM3 Basophils # (Auto) 0.0 TH/MM3 CBC Comment DIFF FINAL Differential Comment Sodium Level 136 MEQ/L Potassium Level 3.8 MEQ/L Chloride Level 104 MEQ/L Carbon Dioxide Level 28.5 MEQ/L Anion Gap 4 MEQ/L Blood Urea Nitrogen 11 MG/DL Creatinine 0.62 MG/DL Estimat Glomerular Filtration 110 ML/MIN Rate Random Glucose 85 MG/DL Hemoglobin A1c 4.7 % Calcium Level 8.7 MG/DL Total Bilirubin 0.7 MG/DL Aspartate Amino Transf 50 U/L (AST/SGOT) Alanine Aminotransferase 87 U/L (ALT/SGPT) Alkaline Phosphatase 55 U/L Total Protein 7.2 GM/DL Albumin 3.7 GM/DL Triglycerides Level 112 MG/DL Cholesterol Level 128 MG/DL LDL Cholesterol 71 MG/DL HDL Cholesterol 35.1 MG/DL Cholesterol/HDL Ratio 3.64 RATIO Vitamin B12 Level 1052 PG/ML 25-Hydroxy Vitamin D Total 27.7 ng/ML Thyroid Stimulating Hormone 1.210 uIU/ML 3rd Gen Mental Status Examination Speech: Unremarkable Orientation: Person, Place (at least) Memory: Unremarkable Thought Process: Thought Blocking Thought Content: Paranoid Hallucination Type: None (Does appear a little int stim) Attention and Concentration: Easily Distracted Suicidal Ideation: No Previous Suicide Attempts: No Homicidal Ideation: No Previous Homicide Attempts: No Insight: Poor Judgment: Poor Affect: Irritable Mood: Other (Dysphoric) Assessment & Plan Problem List: (1) Other psychotic disorder not due to a substance or known physiological condition ICD Code: F28 (2) Amphetamine abuse ICD Code: F15.10 Assessment & Plan Given the circumstances of the patient's presentation here and her presentation on my examination today, I concur with Dr. Jiménez that the patient meets criteria for involuntary psychiatric hospitalization under the White act. I have completed the second opinion paperwork. Further care as per Dr. Jiménez. Thank you very much for this consultation. Signing off. Robinson Miramontes MD Nov 29, 2016 08:41
--- NOTE | 2016-11-29 12:19 | HHI.PYPN ---
Subjective Remarks Patient seen in her room with nurse Rosalina and medical student Clementine. Patient laying in bed calm though vigilant. She is also showing some suspicious behaviors towards me she remains guarded evasive with all of her responses. When asked about her prior statements related to "zombies" she even related to any specific answer. However nurses states she has been no behavioral problem coming out for meals and then retreating to her room. Patient is on no psychotropics at this time. I see no specific signs of psychosis with delusions at this time. The patient remains consistent with her behaviors consider discharge in 24-48 hours Review of Systems Except as stated in HPI: all other systems reviewed are Neg Objective Alert: Yes [place]: Person, Place Mood: Agitated (mildly), Other (restricted) Affect: Other (slight decreased range and intensity) Memory Intact: Comment (Deanne fair) Hallucinations: Other (patient denies) Delusions: No Delusion Type: Paranoid (vaguely paranoid) Suicidal: Ideation (patient markedly ambiguous and manipulative) Homicidal: Ideation (patient markedly ambiguous and manipulative) Insight/Judgment Poor Vitals/IOs Vital Signs Date Time Temp Pulse Resp B/P Pulse Ox O2 Delivery O2 Flow Rate FiO2 11/29/16 06:00 97.6 75 17 115/67 99 11/27/16 15:00 Room Air Assessment & Plan Problem List: (1) Chronic paranoid schizophrenia ICD Code: F20.0 (2) Amphetamine abuse ICD Code: F15.10 (3) Borderline personality disorder ICD Code: F60.3 (4) history of polysubstance abuse Assessment & Plan Estimated LOS: days patient stanton isolative irritable manipulative. She continues to show significant behaviors related to her borderline personality disorder. Justification for Cont. Inpt. At this time patient may decompensate if placed in a lower level of care Discharge Planning To be determined Request HC Surrog/Guard Advoc?: No Sebastian Jiménez MD Nov 29, 2016 12:18
[2016-11-29] MEDS: NICOTINE 21 MG/24 HR PATCH T-DERMAL SCH (18:00)
[2016-11-29 18:12] VITALS: BP 111/74; PULSE 84; RESP 17; TEMP 98.1; O2SAT 99
[2016-11-30 05:58] VITALS: BP 106/79; PULSE 73; RESP 16; TEMP 98; O2SAT 98
[2016-11-30] MEDS: NICOTINE 21 MG/24 HR PATCH T-DERMAL SCH (09:00)
--- NOTE | 2016-11-30 09:15 | HHI.DS ---
Psychiatry Discharge Summary Inpatient Psychiatric care?: Yes Advance Directive: No Reason Not Provided: pt refuses Mental Health AdvanceDirective: No Health Care Proxy: No Admission Admission Date Nov 27, 2016 at 13:08 Admission Diagnosis: (1) Borderline personality disorder ICD Code: F60.3 (2) Amphetamine abuse ICD Code: F15.10 (3) history of polysubstance abuse (4) Chronic paranoid schizophrenia ICD Code: F20.[address] Perry's H&P: 36-year-old female brought in under involuntary commitment for walking in a river holding an ax. Patient was quoted verbatim as stating "I was just doing everyone a favor and leaving since nobody cares. My life bothers people." Furthermore, the patient had been trespassing and refused to come to sure when requested to do so multiple times. She would not give specific information as to what she was doing but reported she needed to protect herself from other people. She also stated she needed to prove a point to her boyfriend's father. The boyfriend was contacted and stated he was unaware of her using drugs but that she used to have a problems with opiates. He also reported she had been "wigging out and thinking people were zombies and that someone was out to harm her." She has been diagnosed with schizophrenia when seen at [facility]. She was reportedly taking prescribed lithium but has been off this medicine because it got wet. Finally, she was admitted to [facility] approximately 2 months ago At this time the patient remains a poor historian. She demonstrates increased response latency, as if she is responding to internal stimuli or experiencing thought blocking. She does state she feels people are out to harm her "sometimes" but is unable to explain this. She is also unable to explain why she was walking in the water, holding an ax. On my examination today: Patient seen and examined with nurse. Chart reviewed. Case discussed with nursing staff. Patient presents as sarcastic, irritable, and fairly uncooperative. She provides no explanation for the circumstances of her presentation here. She is noncommittal regarding SI/HI/AVH. She is basically refusing to participate in interview. Past psychiatric history: "Not really." Patient does admit to a history of psychiatric admissions in the past but denies a history of suicide attempts. Family history: Patient reports that she is not sure of her family history. Chemical dependency history: Patient denies any abuse of drugs or alcohol but provides no explanation for the amphetamines found in her urine. Social history: Patient tells me that she lives in a house with people, declines to provide further details. At this point she tells me that I am asking her the same questions and refuses to speak any further. Tobacco Use In Past 30 Days: 5 or More Cigarettes/Day Alcohol Use: 4 or More Times Per Week Hospital Course Patient's initial study in the hospital was characterized by paranoia irritability, manipulation, denial of mental illness or problems. Showing a marked degree of personality disorder borderline personality type. However within a few days the paranoia slowly resolved the irritability the reflection of responsibility and manipulation subsided somewhat. Patient was kept medication free. Today patient is calm cooperative denies suicidality homicidality voices or visions. She does have a place to stay with her boyfriend. At this time she no longer meets criteria for inpatient psychiatric hospitalization under the White act. She does wish to be discharged. Patient to be discharged today to herself, no Rx by me, strongly referral [facility] for further mental health assessment at her discretion. Strongly referral [facility] voluntary outpatient substance abuse assessment. Strongly referral to NA. Strong recommendation absolute abstinence Results Blood Pressure 106 / 79 Vital Signs Date Time Temp Pulse Resp B/P Pulse Ox O2 Delivery O2 Flow Rate FiO2 11/30/16 05:58 98.0 73 16 106/79 98 11/27/16 15:00 Room Air Laboratory Tests Test 11/28/16 07:25 Neutrophils (%) (Auto) 71.6 % (16.0-70.0) Anion Gap 4 MEQ/L (5-15) Aspartate Amino Transf 50 U/L (15-37) (AST/SGOT) Alanine Aminotransferase 87 U/L (10-53) (ALT/SGPT) HDL Cholesterol 35.1 MG/DL (40.0-60.0) Vitamin B12 Level 1052 PG/ML (193-986) 25-Hydroxy Vitamin D Total 27.7 ng/ML (30-100) Laboratory Results Test 11/28/16 07:25 Hemoglobin A1c 4.7 % (4.3-6.0) Triglycerides Level 112 MG/DL (42-150) Cholesterol Level 128 MG/DL (120-200) LDL Cholesterol 71 MG/DL (0-99) HDL Cholesterol 35.1 MG/DL (40.0-60.0) Summary of Procedures None done Pending results at discharge: No Medications # of Antipsychotic meds at D/C: 0 Approp Antipsych med options 1 - Minimum of three failed multiple trials of monotherapy. 2 - Documented plan to taper to monotherapy due to previous use of multiple meds OR cross-taper in progress at D/C. 3 - Documentation of augmentation of Clozapine. 4 - Justification other than those listed in allowable values 1-3, document here : Discharge Discharge Date: Nov 30, 2016 Discharge Diagnosis: (1) history of polysubstance abuse Diagnosis: Secondary (2) Amphetamine abuse Diagnosis: Secondary ICD Code: F15.10 (3) Borderline personality disorder Diagnosis: Principal ICD Code: F60.3 Mental Status Exam at Disch Alert oriented white female lying calmly in a bed. Nurse Elise present throughout session. She is normoactive. Her mood is euthymic to somewhat restricted with slight decreased range intensity of her affect. Speech rate and rhythm with a normal limits though no formal thought disorders. No auditory or visual hallucinations. No delusions. Insight and judgment is poor. Cognition grossly intact Pt Condition on Discharge: Stable Discharge Disposition: Discharge Home Discharge Instructions Diet Instructions: As Tolerated, No Restrictions Activities you can perform: Regular-No Restrictions Scheduled Appointment: Robles Jenkins (for further mental health assessment on a voluntary basis, also for outpatient voluntary substance abuse assessment also referred to NA) Discharge Time > 30 minutes Discharge/Advance Care Plan Health Problems: (1) Other psychotic disorder not due to a substance or known physiological condition (2) Amphetamine abuse Goals to promote your health * To prevent worsening of your condition and complications * To maintain your health at the optimal level Directions to meet your goals Take your medications as prescribed Follow your dietary instruction Follow activity as directed Keep your appointments as scheduled Take your immunizations and boosters as scheduled If your symptoms worsen call your PCP, if no PCP go to Urgent Care Center or Emergency Room For 12/11 questions related to your inpatient stay or results of tests pending at discharge, please contact Dr. Sebastian Jiménez at Smoking is Dangerous to Your Health. Avoid second hand smoking Sebastian Jiménez MD Nov 30, 2016 09:15
[2016-11-30] MEDS ORDERED: REMOVE OLD NICODERM (NICOTINE) PATCH T-DERMAL SCH (21:00)
== END 2016-11-30 12:20 | disposition home or self-care (01) | DRG 883 ==
LOC: NEPD 16:36 → NEDA 11-27 13:08 → H270 11-27 15:38
PROVIDERS: ADMIT Psychiatry & Neurology Psychiatry; ATTEND Psychiatry & Neurology Psychiatry
DX: F60.3 Borderline personality disorder (principal); Z78.1 Physical restraint status; F15.10 Other stimulant abuse, uncomplicated; F20.0 Paranoid schizophrenia; Z91.19 Patient's noncompliance with other medical treatment and regimen; B19.20 Unspecified viral hepatitis C without hepatic coma; Z72.0 Tobacco use
CPT/HCPCS: 80053; 80061; 80307; 82306; 82607; 83036; 84443; 85025; 96365; 96366; 96372; J2060; J3480; P9612